=== PATIENT | male | born 1995 | race Caucasian/White ===

== ENCOUNTER 2021-03-06 01:39 | Emergency (ER) | payer MEDICAID ==
[~2021-03-06] VITALS: Ht 170.2 cm; Wt 74.8 kg
[2021-03-06 01:42] VITALS: BP 155/78
[2021-03-06 02:01] VITALS: BP 155/78
--- NOTE | 2021-03-06 02:01 | NUR ---
PATIENT BIB [facility]. PATIENT EXAMINED BY DR. LOPES. PATIENT MEDICALLY CLEARED AND RELEASED IN CUSTODY IN STABLE CONDITION. ORIGINAL PRE-BOOK FORM GIVEN TO OFFICER [facility].
== END 2021-03-06 02:01 | disposition home or self-care (01) ==
LOC: MED 01:39
DX: Z02.89 Encounter for other administrative examinations (principal); V98.8XXA Other specified transport accidents, initial encounter; Y93.89 Activity, other specified; Y92.89 Other specified places as the place of occurrence of the external cause; Y99.8 Other external cause status
CPT/HCPCS: 99283